=== PATIENT | female | born 2000 | race Caucasian/White ===

== ENCOUNTER 2022-04-23 00:34 | Emergency (ER) | payer OTHER ==
[~2022-04-23] VITALS: Ht 152.4 cm; Wt 59.0 kg
[2022-04-23] MEDS ORDERED: JUNEL FE 1 MG-1 EACH PO (00:54)
[2022-04-23] MEDS ORDERED: MONTELUKAST SOD10 MG PO (00:55)
[2022-04-23] MEDS ORDERED: AUGMENTIN 875-875 MG PO (03:17)
== END 2022-04-23 03:35 | disposition home or self-care (01) ==
LOC: ED 00:34
DX: T16.2XXA Foreign body in left ear, initial encounter (principal); Z79.899 Other long term (current) drug therapy; Z88.1 Allergy status to other antibiotic agents; Y92.89 Other specified places as the place of occurrence of the external cause